=== PATIENT | male | born 1945 | race Caucasian/White ===

== ENCOUNTER 2021-05-19 14:05 | Inpatient (IN) | payer MEDICARE, BC ==
[~2021-05-19] VITALS: Ht 172.7 cm; Wt 71.7 kg
--- NOTE | 2021-05-19 14:08 | NUR ---
BIB EMS FROM [facility] C/O SOB X 10 DAYS. WORSE ON EXERTION AND INSPIRATION. +COUGH, NO PHLEGM OR HEMOPTYSIS. ADMITS FATIGUE, AND OCCASIONALLY CHILLS, AND DIAPHORESIS. DENIES FEVER, N/V. COVID VACCINATED FE & SEP. HX STAGE 4 BLADDER CANCER, HTN, ASTHMA, MILD EMPHYSEMA. DENIES HX OF DVT. A&OX4. AMBULATORY, PULSES 2+ BILATERALLY, ON MONITOR, BP 155/81. NASAL CANNULA 2L, PULSE OX 97%.
[2021-05-19 14:44] LABS: BASOPHILS # (AUTO) 0.1 K/uL (0.0-0.2); BASOPHILS % (AUTO) 0.9 % (0.0-2.0); EOSINOPHILS % (AUTO) 1.7 % (0.0-6.0); HEMATOCRIT 37 % (39-51); HEMOGLOBIN 12.7 g/dL (13.5-17.5); LYMPHOCYTES % (AUTO) 13.1 % (20.0-44.0); MEAN CORPUSCULAR HGB CONC 34 g/dl (31.0-36.0); MEAN CORPUSCULAR VOLUME 91 fL (80-96); MONOCYTES # (AUTO) 1.3 K/uL (0.1-1.30); MONOCYTES % (AUTO) 8.4 % (2.0-12.0); NEUTROPHILS # (AUTO) 11.4 K/uL (1.8-8.9); NEUTROPHILS % (AUTO) 75.9 % (43.0-81.0); PLATELET COUNT (AUTO) 294 K/uL (150-450); RED BLOOD CELL COUNT(AUTO) 4.13 MIL/uL (4.5-6.0)
--- NOTE | 2021-05-19 14:45 | NUR ---
MOVE SHEET SUBMITTED.
[2021-05-19 14:50] LABS: CARBON DIOXIDE 24 mmol/L (21-32); CHLORIDE 97 mmol/L (98-107); CREATININE 1.3 mg/dL (0.6-1.3); GLUCOSE 110 mg/dL (74-106); POTASSIUM 4.5 mmol/L (3.5-5.1); SODIUM SERUM 132 mmol/L (136-145); UREA NITROGEN, BLOOD 28 mg/dL (7-18)
[2021-05-19] MEDS ORDERED: CT SWABBABLE VALVE TRANS SET 1 EA INFUS.SET MC ONE (14:52)
[2021-05-19] MEDS ORDERED: IOHEXOL-350 100 ML VIAL IV ONE (14:52)
[2021-05-19] MEDS ORDERED: IV NS 0.9% 250 ML IV ONE (14:52)
[2021-05-19] MEDS ORDERED: BACL10TA PO (15:32)
[2021-05-19] MEDS ORDERED: AMLO-212 PO (15:32)
[2021-05-19] MEDS ORDERED: OXYC5CAP18 PO (15:32)
[2021-05-19] MEDS ORDERED: GUAI5SYR4 PO (15:32)
--- NOTE | 2021-05-19 15:46 | NUR ---
COVID SAMPLE OBTAINED AND SENT TO LAB
[2021-05-19] MEDS ORDERED: GUAIFENESIN/CODEINE PHOS 5 ML UDC PO PRN (16:00)
[2021-05-19] MEDS ORDERED: ACETAMINOPHEN 325 MG TABLET PO PRN (16:00)
[2021-05-19] MEDS ORDERED: MAG HYDROX/AL HYDROX/SIMETH 30 ML UDC PO PRN (16:00)
[2021-05-19] MEDS ORDERED: BACLOFEN (10 MG) 10 MG TABLET PO PRN (16:00)
[2021-05-19] MEDS ORDERED: Z GUARD REMEDY 2 OZ OINT TP PRN (16:00)
[2021-05-19] MEDS ORDERED: MAGNESIUM HYDROXIDE 30 ML UDC PO PRN (16:00)
[2021-05-19] MEDS ORDERED: ONDANSETRON HCL/PF 4 MG/2 ML VIAL IVP PRN (16:00)
--- NOTE | 2021-05-19 16:01 | NUR ---
PT UNABLE TO PROVIDE URINE SAMPLE AT THE TIME. GAVE BEDSIDE URINAL.
--- NOTE | 2021-05-19 17:08 | NUR ---
GAVE REPORT TO TANKAGE SUPERVISOR
--- NOTE | 2021-05-19 17:08 | NUR ---
room 310-1
--- NOTE | 2021-05-19 17:14 | NUR ---
pt provided urine sample, sent to lab
[2021-05-19] MEDS ORDERED: LIDOCAINE 1% INJ 50 ML MDV IJ ONE (17:30)
--- NOTE | 2021-05-19 17:45 | NUR ---
PATIENT TRANSPORTED TO FLOOR, TRANSITION OF CARE
--- NOTE | 2021-05-19 17:50 | NUR ---
BOARD MEMBER ADMITTING NOTES RECEIVED TRANSFER FROM ER. PATIENT MEDICALLY STABLE. VS WNL. COMPLAINING OF MILD BACK PAIN BUT DOES NOT WANT HIS MEDICATION NOW. WILL CONTINUE TO MONITOR PATIENT.
[2021-05-19] MEDS: methylPREDNISolone SOD SUCC 125 MG/2ML VIAL IV SCH (18:29)
[2021-05-19 18:30] LABS: BILIRUBIN,URINE Negative (NEGATIVE); COLOR,URINE YELLOW (YELLOW); LEUKOCYTE ESTERASE ,URINE Negative (NEGATIVE); NITRITE, URINE Negative (NEGATIVE); PROTEIN,URINE 30 mg/dl (NEGATIVE); UGLUCOSE Negative (NEGATIVE); UROBILINOGEN,URINE 0.2 EU/dL (0.2)
[2021-05-19 18:34] LABS: BACTERIA,URINE Rare /HPF (None Seen); RBC,URINE NONE SEEN /HPF (0-2); SQUAMOUS EPITHELIAL CELL,UR Few /HPF (None Seen); WBC,URINE NONE SEEN /HPF (0-3)
--- NOTE | 2021-05-19 18:46 | NUR ---
BAKER BENCH CLOSING NOTES PATIENT IN BED, AWAKE, A/0X4, VERBALLY RESPONSIVE. ON O2 @2LPM VIA NC, SATURATION 96%, BREATHING EVEN AND UNLABORED, DENIES SOB. ON TRANSMISSION DESIGN ENGINEER WITH SR READING @85. SL LOCK ON R WRIST #20G PATENT AND INTACT, NO SIGNS OF INFILTRATION NOTED. SAFETY MEASURES PROVIDED. BED LOCKED AND IN LOWEST POSITION, SR UP X2, CALL LIGHT AND TABLE PLACED WITHIN EASY REACH. FAMILY AT BEDSIDE. WILL ENDORSE TO NEXT SHIFT.
[2021-05-19] MEDS: oxyCODONE IR immediate release 5 MG PO PRN (19:48)
--- NOTE | 2021-05-19 19:48 | NUR ---
SENIOR COMPENSATION ANALYST NOTES PATIENT CURRENT C/O 02/18 PAIN. PATIENT WAS GIVEN 5MG OF OXYCODONE IR PO AT THIS TIME.
[2021-05-19 20:00] VITALS: BP 158/76
--- NOTE | 2021-05-19 20:00 | NUR ---
Patient is A&Ox4. In no signs of distress. Currently stable on 2L O2 via NC o2 sat 92% and steady okay for COPD pt. Denies SOB at this time. Will continue to monitor. continue with plan of care. Educated pt. of need to collect stool specimen.
[2021-05-19 20:01] LABS: THYROID STIMULATING HORMONE 5.655 uIU/mL (0.358-3.74)
[2021-05-19] MEDS ORDERED: VANCOMYCIN 1 GM in IV D5W 250 ML IV SCH (21:00)
[2021-05-19] MEDS: ZOLPIDEM TARTRATE 5 MG TABLET PO PRN (22:47)
[2021-05-20] VITALS: BP 163/80
[2021-05-20] MEDS: PIPERACILLIN /TAZOBACTAM 3.375 G in IV D5W 50 ML IV SCH ×5 (00:10→23:19)
[2021-05-20 04:00] VITALS: BP 159/79
--- NOTE | 2021-05-20 06:40 | NUR ---
Patient A&Ox4 awake and stated that he had a good night of sleep and that the PRN Ambien and ear plugs really helped. Tolerating IV ABX well no ase. No episodes of SOB overnight. Continues to be at 92% o2 sat on 2L NC. Patient did not have BM overnight -unable to obtain fecal occult blood stool specimen.
--- NOTE | 2021-05-20 06:50 | NUR ---
1st stool specimen for fecal occult blood collected and put in biohazard fridge.
--- NOTE | 2021-05-20 07:09 | NUR ---
SR in 80s on tele monitor overnight.
[2021-05-20 07:26] LABS: BASOPHILS % (AUTO) 0.3 % (0.0-2.0); EOSINOPHILS % (AUTO) 0.1 % (0.0-6.0); HEMATOCRIT 36 % (39-51); HEMOGLOBIN 12.7 g/dL (13.5-17.5); LYMPHOCYTES # (AUTO) 1.5 K/uL (0.8-4.8); LYMPHOCYTES % (AUTO) 9.2 % (20.0-44.0); MEAN CORPUSCULAR HGB CONC 35 g/dl (31.0-36.0); MEAN CORPUSCULAR VOLUME 89 fL (80-96); MONOCYTES # (AUTO) 0.5 K/uL (0.1-1.30); MONOCYTES % (AUTO) 3.1 % (2.0-12.0); NEUTROPHILS # (AUTO) 14.1 K/uL (1.8-8.9); NEUTROPHILS % (AUTO) 87.3 % (43.0-81.0); PLATELET COUNT (AUTO) 282 K/uL (150-450); RED BLOOD CELL COUNT(AUTO) 4.06 MIL/uL (4.5-6.0); WHITE BLOOD COUNT (AUTO) 16.1 K/uL (4.3-11.0)
[2021-05-20 07:52] LABS: CHOLESTEROL 154 mg/dL (<200); HDL CHOLESTEROL 47 mg/dL (40-60); LDL 85 mg/dL (0-99); THYROID STIMULATING HORMONE 2.132 uIU/mL (0.358-3.74); TRIGLYCERIDES 93 mg/dL (30-150)
[2021-05-20 08:00] VITALS: BP 156/76
[2021-05-20 08:12] LABS: CALCIUM, SERUM 8.5 mg/dL (8.5-10.1); CARBON DIOXIDE 17 mmol/L (21-32); CHLORIDE 94 mmol/L (98-107); CREATININE 1.8 mg/dL (0.6-1.3); GLUCOSE 242 mg/dL (74-106); MAGNESIUM 2.3 mg/dL (1.8-2.4); PHOSPHORUS 4.9 mg/dL (2.5-4.9); POTASSIUM 4.5 mmol/L (3.5-5.1); SODIUM SERUM 129 mmol/L (136-145); UREA NITROGEN, BLOOD 34 mg/dL (7-18)
[2021-05-20] MEDS ORDERED: VANCOMYCIN 0.75 GM in IV D5W 250 ML IV SCH (09:00)
[2021-05-20 09:16] LABS: BAND % (MANUAL) 5 % (0.0-5.0); EOSINOPHILS % (MANUAL) 1 % (0-4); LYMPHOCYTES % (MANUAL) 10 % (16-48); MONOCYTES % (MANUAL) 4 % (0-11.0); MYELOCYTES % 3 % (0-0); NEUTROPHILS % (MANUAL) 77 (42-76)
[2021-05-20] MEDS: methylPREDNISolone SOD SUCC 125 MG/2ML VIAL IV SCH (09:35)
[2021-05-20] MEDS: AMLODIPINE BESYLATE 5 MG TABLET PO SCH (09:35)
[2021-05-20] MEDS: PANTOPRAZOLE 40 MG TABLET.DR PO SCH (09:35)
--- NOTE | 2021-05-20 10:30 | NUR ---
pt. up walking in -good distance,with physical tx.
[2021-05-20 10:36] LABS: ABG BASE EXCESS -5.5 mmol/L; ABG OXYGEN SATURATION 88.5 % (92.0-98.5); ABG PCO2 24.2 mmHg (35.0-45.0); ABG PH 7.455 (7.350-7.450); ABG PO2 57.4 mmHg (75.0-100.0); AaDO2 63.4 mmHg; COHb 0.1 % (0.5-1.5); MetHb 0.3 % (0.0-1.5); O2Hb 88.1 % (94.0-97.0); SITE, ABG Left Radial; VENT MODE, BG ROOM AIR
[2021-05-20] MEDS: IPRATROPIUM NEB FS 0.5 MG/2.5 ML AMPUL.NEB NEB SCH ×4 (10:49→23:20)
[2021-05-20] MEDS: ALBUTEROL HALF STRENGTH 1.25 MG/3 ML VIAL.NEB NEB SCH ×4 (10:52→23:20)
--- NOTE | 2021-05-20 14:30 | NUR ---
texted dr. soliman with 's number. aware.michael sebastian,dr. dia in to see pt and .pt. went down for ct of chest.
--- NOTE | 2021-05-20 15:00 | NUR ---
dr. soliman calling to inquire about pft's done @[facility] office. rn calling dr. stevens's office states they will fax info to [facility].dr. soliman called back to inform him. made aware.
--- NOTE | 2021-05-20 16:46 | NUR ---
SS Consult requested for "score of 3". SW called Marisa HERNANDEZ but unable to speak to er about what tis consult is for. SW will follow up at a later time.
--- NOTE | 2021-05-20 18:20 | NUR ---
pt.c/o trembling hands just not feeling well. vs stable see graphic sheet, heart monitor reads nsr rate of 87.pox 92.sob with minimal exertion.o2 on.t.jaz electrical controls designer texted with info.aware pt. on solu-medrol and breathing treatments.informed bgl at this time 240.given order for ativan one time order.at this time pt. refusing ativan.additionally temp 98.
[2021-05-20 18:25] VITALS: BP 156/78
[2021-05-20] MEDS ORDERED: LORAZEPAM INJ 2 MG/ML VIAL IV ONE (18:30)
--- NOTE | 2021-05-20 19:57 | NUR ---
RN OPENING NOTES Patient is A&Ox4. at bedside. Patient reports breathing is much improved and hopeful to go home tomorrow. No signs of distress at this time. IV patent and flushed. Will continue to monitor.
[2021-05-20 20:11] LABS: OCCULT BLOOD STOOL NEGATIVE (NEGATIVE)
[2021-05-20] MEDS: oxyCODONE IR immediate release 5 MG PO PRN (20:35)
[2021-05-20 20:46] VITALS: BP 153/75
[2021-05-20] MEDS: ZOLPIDEM TARTRATE 5 MG TABLET PO PRN (23:29)
[2021-05-20 23:52] VITALS: BP 148/79
[2021-05-21] MEDS ORDERED: IV NS 0.9% 1,000 ML IV ONE
--- NOTE | 2021-05-21 01:57 | NUR ---
Patient's pain unrelieved by PRN Oxycodone pt. was trying to sleep it off but awoke in pain triggering an episode of SOB which has subsided. O2 sat stable 92%. MD on-call made aware. New order to increase oxycodone to 10mg Q6H PRN and give first dose NOW.
[2021-05-21] MEDS: oxyCODONE IR immediate release 5 MG PO PRN ×2 (02:02→10:00)
[2021-05-21] MEDS: IPRATROPIUM NEB FS 0.5 MG/2.5 ML AMPUL.NEB NEB SCH ×5 (03:30→14:38)
[2021-05-21] MEDS: ALBUTEROL HALF STRENGTH 1.25 MG/3 ML VIAL.NEB NEB SCH ×5 (03:30→14:38)
[2021-05-21 04:33] VITALS: BP 139/70
[2021-05-21] MEDS: PIPERACILLIN /TAZOBACTAM 3.375 G in IV D5W 50 ML IV SCH ×2 (05:23→12:01)
--- NOTE | 2021-05-21 05:56 | NUR ---
Patient decided against Ativan one time only. Able to calm nerves and SOB improved. Non-administered.
--- NOTE | 2021-05-21 06:03 | NUR ---
Patient slept intermittently throughout night but woke up in pain x1, woke up to transferring roommate and woke up to cleaning of room. x1 episode of SOB triggered when patient woke up and had to use the restroom, but quickly subsided O2 sats stable at 92% on 2L via NC. Otherwise, pain better managed with new dose of Oxycodone. Patient A&Ox4. VSS.
--- NOTE | 2021-05-21 07:30 | NUR ---
RN OPENING TELE NOTES: RECEIVED PATIENT IN BED AWAKE. aLERT AND ORIENTED TIMES 4. NO PAIN NOTED. NO RESPIRATORY DISTRESS NOTED. ON O2 INHALATION VIA NASAL CANNULA @ 2L/MIN. O2 NOTED AT 92%. TELE PATIENT , SR=75 . PATIENT IV SITE ON THE RIGHT HAND PATENT AND INTACT. NO SWELLING NO REDNESS NOTED. ABLE TO MAKE NEEDS KNOWN. BED IN THE LOWEST POSITION, LOCKED AND BED SIDE RAILS UP X2. CALL LIGHT AND TABLE WITHIN REACH .WILL CONTINUE TO MONITOR.
[2021-05-21] MEDS: PANTOPRAZOLE 40 MG TABLET.DR PO SCH (07:41)
--- NOTE | 2021-05-21 07:47 | NUR ---
RESP TX DEFERRED PER PTS REQUEST NO S/S OF SOB NOTED Addendum: 05/21/21 at 0748 by TL POLK RT Amended: Links added.
[2021-05-21 08:00] VITALS: BP 143/81
[2021-05-21] MEDS: methylPREDNISolone SOD SUCC 125 MG/2ML VIAL IV SCH (08:24)
[2021-05-21] MEDS: AMLODIPINE BESYLATE 5 MG TABLET PO SCH (08:25)
[2021-05-21 08:43] LABS: CALCIUM, SERUM 8.6 mg/dL (8.5-10.1); CARBON DIOXIDE 20 mmol/L (21-32); CHLORIDE 95 mmol/L (98-107); CREATININE 1.7 mg/dL (0.6-1.3); GLUCOSE 115 mg/dL (74-106); POTASSIUM 4.6 mmol/L (3.5-5.1); SODIUM SERUM 135 mmol/L (136-145); UREA NITROGEN, BLOOD 36 mg/dL (7-18)
[2021-05-21] MEDS ORDERED: VANCOMYCIN 1 GM in IV D5W 250 ML IV SCH (09:00)
[2021-05-21] MEDS ORDERED: DILTIAZEM HCL CD 240 MG PO SCH (09:00)
--- NOTE | 2021-05-21 10:00 | NUR ---
RN NOTES PATIENT HAS C/O PAIN ON LOWER BACK WITH PAIN SCALE OF 9/10. DUE PAIN MEDICATION GIVEN ORDERED.
[2021-05-21 12:00] VITALS: BP_SYST 141; BP_SYST 145; BP_SYST 155; BP_DIAS 68; BP_DIAS 69; BP_DIAS 73
[2021-05-21 13:07] LABS: *SPE A/G RATIO 1.1 (0.7-1.7); *SPE ALPHA-1-GLOBULIN 0.3 g/dL (0.0-0.4); *SPE ALPHA-2-GLOBULIN 0.7 g/dL (0.4-1.0); *SPE BETA GLOBULIN 0.9 g/dL (0.7-1.3); *SPE M-SPIKE Not Observed g/dL (Not Observed)
[2021-05-21 14:07] LABS: IMMUNOGLOBULIN A, SERUM 178 mg/dL (61-437); IMMUNOGLOBULIN G, SERUM 938 mg/dL (603-1613); IMMUNOGLOBULIN M, SERUM 54 mg/dL (15-143)
--- NOTE | 2021-05-21 14:09 | NUR ---
RN NOTES PATIENT IS DE SATURATING AT 88% AT RA.
--- NOTE | 2021-05-21 14:45 | NUR ---
RN NOTES PER SOO RAYGOZA, DISCHARGE PATIENT BEFORE 3PM TODAY. DC ORDERS TO FOLLOW.
[2021-05-21] MEDS ORDERED: PRED20TA PO (15:05)
[2021-05-21] MEDS ORDERED: FLUT1DIS3 INH (15:05)
[2021-05-21] MEDS ORDERED: AMOX-430 PO (15:05)
[2021-05-21] MEDS ORDERED: DEXL60CA3 PO (15:05)
[2021-05-21] MEDS ORDERED: ALBU8.5H8 INH (15:05)
[2021-05-21] MEDS ORDERED: DILT240C88 PO (15:05)
[2021-05-21] MEDS ORDERED: TIOT18CA3 INH (15:05)
[2021-05-21] MEDS ORDERED: DOXY-326 PO (15:05)
--- NOTE | 2021-05-21 15:32 | NUR ---
DISCHARGE NOTES DISCHARGED PATIENT PER SOO RAYGOZA'S ORDER. PATIENT IS ON OXYGEN VIA NC UPON DISCHARGE PER ORDER. IN NO ACUTE DISTRESS NOTED. TELE MONITOR REMOVED, PHOTOGRAPHIC RESTORER AWARE. VITAL SIGNS WITHIN NORMAL LIMITS. DISCHARGE INSTRUCTIONS GIVEN TO PATIENT AND PATIENT'S . BOTH VERBALIZED UNDERSTANDING. IV ACCESS REMOVED, COVERED WITH GAUZE, NO BLEEDING NOTED. ARMBAND REMOVED. WHEELED TO LOBBY SAFELY ACCOMPANIED BY ANI RN. LEFT UNIT IN STABLE CONDITION. CHARGE NURSE AND MD AWARE OF DC.
[2021-05-22] MEDS ORDERED: VANCOMYCIN 1 GM in IV D5W 250 ML IV SCH (03:00)
== END 2021-05-21 15:30 | disposition home or self-care (01) | DRG 175 ==
LOC: ER 14:07 → TELE 17:34
DX: I26.99 Other pulmonary embolism without acute cor pulmonale (principal); J96.01 Acute respiratory failure with hypoxia; N17.0 Acute kidney failure with tubular necrosis; J18.9 Pneumonia, unspecified organism; C78.7 Secondary malignant neoplasm of liver and intrahepatic bile duct; D84.9 Immunodeficiency, unspecified; C79.51 Secondary malignant neoplasm of bone; E87.1 Hypo-osmolality and hyponatremia; C78.6 Secondary malignant neoplasm of retroperitoneum and peritoneum; C79.31 Secondary malignant neoplasm of brain; M35.81 Multisystem inflammatory syndrome; E87.2 Acidosis; C67.9 Malignant neoplasm of bladder, unspecified; I11.0 Hypertensive heart disease with heart failure; J43.9 Emphysema, unspecified; I50.9 Heart failure, unspecified; Z20.822 Contact with and (suspected) exposure to COVID-19; Z85.46 Personal history of malignant neoplasm of prostate; Z87.891 Personal history of nicotine dependence; Z90.5 Acquired absence of kidney; I25.10 Atherosclerotic heart disease of native coronary artery without angina pectoris; Z79.899 Other long term (current) drug therapy; Z92.21 Personal history of antineoplastic chemotherapy; R73.9 Hyperglycemia, unspecified; T38.0X5A Adverse effect of glucocorticoids and synthetic analogues, initial encounter; Y92.9 Unspecified place or not applicable; E86.1 Hypovolemia; D64.9 Anemia, unspecified; M85.80 Other specified disorders of bone density and structure, unspecified site; M84.48XD Pathological fracture, other site, subsequent encounter for fracture with routine healing
CPT/HCPCS: 36415; 36600; 71045-TC; 71250-TC; 80048-TC; 80061-TC; 80202-TC; 81001; 82272-TC; 82550-TC; 82728-TC; 82784; 82803-TC; 82962-TC; 83540-TC; 83735-TC; 83880; 84100-TC; 84155; 84165; 84439-TC; 84443-TC; 84484-TC; 85025-TC; 86334; 87040-TC; 87081-TC; 87086-TC; 93307-TC; 93970-TC; 94799-TC; 97116-TC; 97530-TC; C9803; G0378; J2543; J2930; J3370; J7030; J7040; J7050; J7060; Q9967